=== PATIENT | female | born 1985 | race Caucasian/White ===

== ENCOUNTER 2017-11-03 06:04 | Day surgery (SDC) | payer MEDICAID ==
[2017-11-03] MEDS ORDERED: CEFAZOLIN 1 GM INJ (07:00)
[2017-11-03 07:29] LABS: ADD MAN DIFF? NO
[2017-11-03] MEDS ORDERED: BUPIVACAINE 0.5%/EPI (SDV) 30 ML INJ (07:31)
[2017-11-03 07:32] LABS: BASOPHIL # 0.1 10^3/ul (0.0-0.1); BASOPHILS % 1.5 % (0.0-2.0); EOSINOPHILS # 0.2 10^3/ul (0.0-0.5); EOSINOPHILS % 2.7 % (0.0-7.0); HEMATOCRIT 40.6 % (37.0-47.0); LYMPHOCYTES # 2.1 10^3/ul (0.8-2.9); LYMPHOCYTES % 31.1 % (15.0-51.0); MEAN CORPUSCULAR HEMOGLOBIN 27.5 pg (29.0-33.0); MEAN PLATELET VOLUME 10.2 fl (7.4-10.4); MONOCYTE # 0.4 10^3/ul (0.3-0.9); MONOCYTES % 6.5 % (0.0-11.0); NEUTROPHIL # 3.9 10^3/ul (1.6-7.5); NEUTROPHILS % 57.8 % (39.0-77.0); PLATELET COUNT 282 10^3/UL (140-415); RED BLOOD COUNT 4.72 10^6/ul (4.20-5.40)
[2017-11-03 07:32] LABS: WHITE BLOOD COUNT 6.8 10^3/ul (4.8-10.8)
[2017-11-03] MEDS: BUPIVACAINE 0.5%/EPI (SDV) 30 ML INJ INJ (07:45)
[2017-11-03 07:52] LABS: ALANINE AMINOTRANSFERASE 37 IU/L (13-69); ALBUMIN 4.3 g/dl (3.3-4.9); ALBUMIN/GLOBULIN RATIO 1.19; ALKALINE PHOSPHATASE 77 IU/L (42-121); ANION GAP 15 (8-16); ASPARTATE AMINO TRANSFERASE 30 IU/L (15-46); BILIRUBIN,INDIRECT 0.8 mg/dl (0-1.1); BILIRUBIN,TOTAL 0.8 mg/dl (0.2-1.3); CARBON DIOXIDE 25 mmol/L (21-31); CHLORIDE 112 mmol/L (97-110); GLUCOSE 102 mg/dl (70-220); TOTAL PROTEIN 7.9 g/dl (6.1-8.1)
[2017-11-03] MEDS ORDERED: ROCURONIUM 50 MG INJ (07:55)
[2017-11-03] MEDS ORDERED: NEOSTIGMINE 3 MG/3 ML SYRINGE ×2 (07:55→08:24)
[2017-11-03] MEDS ORDERED: MEPERIDINE 100 MG INJ (07:55)
[2017-11-03] MEDS ORDERED: SUCCINYLCHOLINE CHLORIDE 100 MG/5 ML SYG IV (07:55)
[2017-11-03] MEDS ORDERED: PROPOFOL 20 ML (07:55)
[2017-11-03] MEDS ORDERED: LIDOCAINE 2% (SDV) 5 ML INJ (07:55)
[2017-11-03] MEDS ORDERED: GLYCOPYRROLATE 0.4 MG INJ ×2 (07:55→08:24)
[2017-11-03 07:58] LABS: BLOOD UREA NITROGEN 13 mg/dl (7-20); CALCIUM 9.1 mg/dl (8.4-10.2); CREATININE 0.56 mg/dl (0.44-1.00); POTASSIUM 4.8 mmol/L (3.5-5.1); SODIUM 147 mmol/L (135-144)
[2017-11-03] MEDS ORDERED: EPHEDrine SULFATE 50 MG/5 ML SYG IV (08:00)
[2017-11-03] MEDS ORDERED: MEPERIDINE 25 MG INJ IV (08:00)
[2017-11-03] MEDS ORDERED: ONDANSETRON 4 MG INJ IV ×2 (08:00→10:00)
[2017-11-03] MEDS ORDERED: HYDROmorphONE 1 MG/5 ML IV SYRINGE IV (08:00)
[2017-11-03] MEDS ORDERED: METOCLOPRAMIDE 10 MG INJ IV (08:00)
[2017-11-03] MEDS ORDERED: DIPHENHYDRAMINE 50 MG INJ IV (08:00)
[2017-11-03] MEDS ORDERED: hydrALAzine 20 MG INJ IV (08:00)
[2017-11-03] MEDS ORDERED: LABETALOL HCL 20MG INJ IV (08:00)
[2017-11-03] MEDS ORDERED: FENTAnyl 50 MCG/ML VIAL IV ×3 (08:00)
[2017-11-03] MEDS ORDERED: OXYCODONE/ACETAMINOPHEN (5/325) TAB PO ×2 (08:00→10:00)
[2017-11-03] MEDS ORDERED: MIDAZOLAM 1 MG/ML 2 ML INJ IV (08:00)
[2017-11-03 08:01] LABS: INR 0.96; PROTIME 12.9 Sec (11.9-14.9)
[2017-11-03 08:02] LABS: PARTIAL THROMBOPLASTIN TIME 33.9 Sec (25.0-35.0)
[2017-11-03] MEDS ORDERED: ONDANSETRON 4 MG INJ (08:03)
[2017-11-03] MEDS ORDERED: METOCLOPRAMIDE 10 MG INJ (08:03)
[2017-11-03] MEDS ORDERED: LACTATED RINGER'S 1,000 ML IV (09:30)
[2017-11-03] MEDS: HYDROmorphONE 1 MG/5 ML IV SYRINGE IV ×2 (09:48→09:55)
[2017-11-03] MEDS: OXYCODONE/ACETAMINOPHEN (5/325) TAB PO (09:58)
[2017-11-03] MEDS ORDERED: ACETAMINOPHEN 325 MG TAB PO (10:00)
[2017-11-03] MEDS ORDERED: IBUPROFEN 600 MG TAB PO (10:00)
[2017-11-03] MEDS ORDERED: morphine 2 MG INJ IV (10:00)
== END 2017-11-03 11:45 | disposition home or self-care (01) ==
LOC: SDS 06:04
DX: Z30.2 Encounter for sterilization (principal)
CPT/HCPCS: 58670; 80053; 85025; 85610; 85730; 86850; 86900; 86901